=== PATIENT | male | born 1965 | race African-American/Black ===

== ENCOUNTER 2021-03-02 08:55 | Outpatient (CLI) | payer OTHER | END 2021-03-02 20:41 | disposition home or self-care (01) | LOC: RAD 08:55 | PROVIDERS: ATTEND Family Medicine | DX: M25.561 Pain in right knee (principal); Z68.42 Body mass index [BMI] 45.0-49.9, adult; R10.9 Unspecified abdominal pain; Z83.3 Family history of diabetes mellitus; R63.5 Abnormal weight gain; R06.83 Snoring ==

== ENCOUNTER 2021-05-11 10:45 | Outpatient (CLI) | payer OTHER ==
[2021-05-11 11:40] LABS: PLATELET COUNT 167 K/uL (142-355)
[2021-05-11 11:59] LABS: POTASSIUM 4.6 mmol/L (3.6-5.2)
[2021-05-11 12:04] LABS: PARTIAL THROMBOPLASTIN TIME 25.6 SECONDS (24.5-33.6)
== END 2021-05-11 19:03 | disposition home or self-care (01) ==
LOC: LABW 10:45
PROVIDERS: ATTEND Family Medicine
DX: R07.9 Chest pain, unspecified (principal); E66.01 Morbid (severe) obesity due to excess calories; E78.00 Pure hypercholesterolemia, unspecified; R73.03 Prediabetes
CPT/HCPCS: 36415; 80053; 80061; 81000; 82550; 83735; 84100; 84439; 84443; 84484; 85027; 85610; 85730; 93005